=== PATIENT | female | born 1945 | race Caucasian/White ===

== ENCOUNTER 2019-06-13 09:34 | Outpatient (CLI) | payer MEDICARE | END 2019-06-13 11:34 | disposition home or self-care (01) | LOC: ECT 09:34 | DX: F33.2 Major depressive disorder, recurrent severe without psychotic features (principal); F43.10 Post-traumatic stress disorder, unspecified; F41.1 Generalized anxiety disorder; Z98.1 Arthrodesis status; Z90.710 Acquired absence of both cervix and uterus; Z79.899 Other long term (current) drug therapy; Z81.8 Family history of other mental and behavioral disorders ==

== ENCOUNTER 2019-06-28 04:39 | Outpatient (RCR) | payer MEDICARE ==
[~2019-06-28] VITALS: Ht 162.6 cm; Wt 54.9 kg
[2019-07-01] MEDS ORDERED: Succinylcholine 20mg/ml 10ml vial ONE (06:00)
[2019-07-01] MEDS ORDERED: Methohexital Sodium Syr 100mg/10ml IVP ONE (06:00)
[2019-07-01] MEDS ORDERED: NS 500ML ONE (06:00)
[2019-07-01 10:38] VITALS: BP 156/77
[2019-07-01 10:50] VITALS: BP 135/46
[2019-07-01 10:55] VITALS: BP 146/67
[2019-07-01 11:00] VITALS: BP 147/68
[2019-07-01 11:05] VITALS: BP 147/78
[2019-07-01 12:09] VITALS: BP 156/77
[2019-07-03] MEDS ORDERED: Succinylcholine 20mg/ml 10ml vial ONE (06:00)
[2019-07-03] MEDS ORDERED: Methohexital Sodium Syr 100mg/10ml IVP ONE (06:00)
[2019-07-03] MEDS ORDERED: NS 500ML ONE (06:00)
[2019-07-03 09:09] VITALS: BP 137/72
[2019-07-03 09:25] VITALS: BP 142/71
[2019-07-03 09:30] VITALS: BP 146/60
[2019-07-03 09:35] VITALS: BP 145/64
[2019-07-03 09:40] VITALS: BP 140/60
== END 2019-07-04 | disposition home or self-care (01) ==
LOC: ECT 04:39
DX: F31.5 Bipolar disorder, current episode depressed, severe, with psychotic features (principal); Z85.828 Personal history of other malignant neoplasm of skin; M85.80 Other specified disorders of bone density and structure, unspecified site; M19.042 Primary osteoarthritis, left hand; M19.041 Primary osteoarthritis, right hand
CPT/HCPCS: 90870; J0330; J7040

== ENCOUNTER 2019-07-05 04:35 | Outpatient (RCR) | payer MEDICARE ==
[~2019-07-05] VITALS: Ht 162.6 cm; Wt 54.9 kg
[2019-07-05] MEDS ORDERED: NS 500ML ONE ×5 (04:36)
[2019-07-05] MEDS ORDERED: Succinylcholine 20mg/ml 10ml vial ONE ×5 (04:36)
[2019-07-05] MEDS ORDERED: Methohexital Sodium Syr 100mg/10ml IVP ONE ×4 (04:36)
[2019-07-05] MEDS ORDERED: Esmolol 100mg/10ml Inj ONE (04:36)
[2019-07-05 08:50] VITALS: BP 145/71
[2019-07-05 09:05] VITALS: BP 150/71
[2019-07-05 09:10] VITALS: BP 145/62
[2019-07-05 09:15] VITALS: BP 149/64
[2019-07-05 09:20] VITALS: BP 145/66
[2019-07-08] MEDS ORDERED: Methohexital Sodium Syr 100mg/10ml IVP ONE (06:00)
[2019-07-08] MEDS ORDERED: Succinylcholine 20mg/ml 10ml vial ONE (06:00)
[2019-07-08] MEDS ORDERED: NS 500ML ONE (06:00)
[2019-07-08 08:53] VITALS: BP 130/76
[2019-07-08 09:08] VITALS: BP 152/84
[2019-07-08 09:13] VITALS: BP 153/77
[2019-07-08 09:18] VITALS: BP 148/67
[2019-07-08 09:23] VITALS: BP 147/65
[2019-07-10 09:06] VITALS: BP 128/66
[2019-07-10 09:20] VITALS: BP 146/55
[2019-07-10 09:25] VITALS: BP 146/61
[2019-07-10 09:30] VITALS: BP 135/65
[2019-07-10 09:35] VITALS: BP 136/55
[2019-07-12 08:38] VITALS: BP 124/68
[2019-07-12 08:50] VITALS: BP 145/65
[2019-07-12 08:55] VITALS: BP 144/63
[2019-07-12 09:00] VITALS: BP 144/63
[2019-07-12 09:05] VITALS: BP 140/59
[2019-07-15 08:20] VITALS: BP 118/68
[2019-07-15 08:30] VITALS: BP 148/74
[2019-07-15 08:35] VITALS: BP 139/68
[2019-07-15 08:40] VITALS: BP 136/54
[2019-07-15 08:45] VITALS: BP 136/59
[2019-07-17] MEDS ORDERED: NS 500ML ONE (06:00)
[2019-07-17] MEDS ORDERED: Methohexital Sodium Syr 100mg/10ml IVP ONE (06:00)
[2019-07-17] MEDS ORDERED: Succinylcholine 20mg/ml 10ml vial ONE (06:00)
[2019-07-17 09:38] VITALS: BP 130/63
[2019-07-17 09:55] VITALS: BP 143/74
[2019-07-17 10:00] VITALS: BP 145/70
[2019-07-17 10:05] VITALS: BP 136/70
[2019-07-17 10:10] VITALS: BP 143/54
[2019-07-19 10:19] VITALS: BP 132/68
[2019-07-19 10:30] VITALS: BP 143/74
[2019-07-19 10:35] VITALS: BP 143/62
[2019-07-19 10:40] VITALS: BP 150/59
[2019-07-19 10:45] VITALS: BP 146/63
[2019-07-24] MEDS ORDERED: Succinylcholine 20mg/ml 10ml vial ONE (06:00)
[2019-07-24] MEDS ORDERED: Methohexital Sodium Syr 100mg/10ml IVP ONE (06:00)
[2019-07-24] MEDS ORDERED: NS 500ML ONE (06:00)
[2019-07-24 10:31] VITALS: BP 134/69
[2019-07-24 10:45] VITALS: BP 141/71
[2019-07-24 10:50] VITALS: BP 147/59
[2019-07-24 10:55] VITALS: BP 140/65
[2019-07-24 11:00] VITALS: BP 140/61
[2019-07-29] MEDS ORDERED: NS 500ML ONE (06:00)
[2019-07-29] MEDS ORDERED: Methohexital Sodium Syr 100mg/10ml IVP ONE (06:00)
[2019-07-29] MEDS ORDERED: Succinylcholine 20mg/ml 10ml vial ONE (06:00)
[2019-07-29 10:03] VITALS: BP 143/68
[2019-07-29 10:15] VITALS: BP 146/56
[2019-07-29 10:20] VITALS: BP 148/66
[2019-07-29 10:25] VITALS: BP 152/64
[2019-07-29 10:30] VITALS: BP 151/56
== END 2019-08-03 | disposition home or self-care (01) ==
LOC: ECT 04:35
DX: F31.5 Bipolar disorder, current episode depressed, severe, with psychotic features (principal)
CPT/HCPCS: 90870; J0330; J7040

== ENCOUNTER 2019-08-05 08:51 | Outpatient (RCR) | payer MEDICARE ==
[~2019-08-05] VITALS: Ht 162.6 cm; Wt 54.9 kg
[2019-08-05] MEDS ORDERED: Succinylcholine 20mg/ml 10ml vial ONE ×3 (08:52)
[2019-08-05] MEDS ORDERED: NS 500ML ONE ×3 (08:52)
[2019-08-05] MEDS ORDERED: Methohexital Sodium Syr 100mg/10ml IVP ONE ×3 (08:52)
[2019-08-05 09:23] VITALS: BP 142/66
[2019-08-05 09:41] VITALS: BP 146/66
[2019-08-05 09:46] VITALS: BP 146/75
[2019-08-05 09:51] VITALS: BP 152/69
[2019-08-05 09:56] VITALS: BP 155/77
[2019-08-09] MEDS ORDERED: NS 500ML ONE (06:00)
[2019-08-09] MEDS ORDERED: Succinylcholine 20mg/ml 10ml vial ONE (06:00)
[2019-08-09] MEDS ORDERED: Methohexital Sodium Syr 100mg/10ml IVP ONE (06:00)
[2019-08-09 09:03] VITALS: BP 136/67
[2019-08-09 09:15] VITALS: BP 141/64
[2019-08-09 09:20] VITALS: BP 139/64
[2019-08-09 09:25] VITALS: BP 146/64
[2019-08-09 09:30] VITALS: BP 143/61
[2019-08-14 10:40] VITALS: BP 138/75
[2019-08-14 10:52] VITALS: BP 140/60
[2019-08-14 10:57] VITALS: BP 134/58
[2019-08-14 11:02] VITALS: BP 133/59
[2019-08-14 11:07] VITALS: BP 145/82
[2019-08-19] MEDS ORDERED: NS 500ML ONE (06:00)
[2019-08-19] MEDS ORDERED: Methohexital Sodium Syr 100mg/10ml IVP ONE (06:00)
[2019-08-19] MEDS ORDERED: Succinylcholine 20mg/ml 10ml vial ONE (06:00)
[2019-08-19 09:16] VITALS: BP 151/72
[2019-08-19 09:27] VITALS: BP 157/76
[2019-08-19 09:32] VITALS: BP 153/63
[2019-08-19 09:37] VITALS: BP 151/65
[2019-08-19 09:42] VITALS: BP 155/63
[2019-08-26 09:59] VITALS: BP 150/69
[2019-08-26 10:10] VITALS: BP 136/72
[2019-08-26 10:15] VITALS: BP 140/94
[2019-08-26 10:20] VITALS: BP 154/71
[2019-08-26 10:25] VITALS: BP 143/56
== END 2019-09-03 | disposition home or self-care (01) ==
LOC: ECT 08:51
DX: F31.5 Bipolar disorder, current episode depressed, severe, with psychotic features (principal)
CPT/HCPCS: 90870

== ENCOUNTER 2019-10-30 05:26 | Outpatient (RCR) | payer MEDICARE ==
[~2019-10-30] VITALS: Ht 30.5 cm; Wt 0.5 kg
[2019-10-30] MEDS ORDERED: Succinylcholine 20mg/ml 10ml vial ONE (05:27)
[2019-10-30] MEDS ORDERED: NS 500ML ONE (05:27)
[2019-10-30] MEDS ORDERED: Methohexital Sodium Syr 100mg/10ml IVP ONE (05:27)
[2019-10-30 09:41] VITALS: BP 168/82
[2019-10-30 09:54] VITALS: BP 158/70
[2019-10-30 09:59] VITALS: BP 150/81
[2019-10-30 10:04] VITALS: BP 166/95
[2019-10-30 10:09] VITALS: BP 159/91
== END 2019-11-02 | disposition home or self-care (01) ==
LOC: ECT 05:26
DX: F31.5 Bipolar disorder, current episode depressed, severe, with psychotic features (principal)
CPT/HCPCS: 90870; J0330; J7040